=== PATIENT | female | born 1955 | race Caucasian/White ===

== ENCOUNTER 2022-04-05 15:54 | Observation (INO) ==
[2022-04-05] MEDS ORDERED: Iopamidol - 370 500 ML MLS IVP ONE (16:32)
[2022-04-05 16:38] LABS: Basophils % 0.4 %; Eosinophils # 0.1 K/mcL (0.0-0.6); Eosinophils % 1.3 %; Hematocrit 36.3 % (35.3-44.9); Hemoglobin 12.2 g/dL (11.5-15.4); Immature Granulocytes % 0.2 % (0-4); Lymphocytes # 1.1 K/mcL (0.6-4.6); Mean Corpuscular HGB Conc 33.6 g/dL (31.6-35.5); Mean Corpuscular Volume 86.2 fL (83.0-100.0); Mean Platelet Volume 9.2 fL (9.4-12.4); Monocytes # 0.8 K/mcL (0.0-1.3); Monocytes % 8.3 %; Platelet Count 372 K/mcL (140-400); Red Blood Count 4.21 M/mcL (3.82-4.97); Red Cell Distribution Width 13.1 % (11.5-14.5); Segmented Neutrophils % 77.8 %
[2022-04-05 17:22] LABS: Alanine Aminotransferase 5 Units/L (7-52); Albumin 4.2 g/dL (3.5-5.7); Albumin/Globulin Ratio 1.5 (1.1-2.2); Alkaline Phosphatase 67 Units/L (34-104); Aspartate Amino Transferase 17 Units/L (13-39); BUN/Creatinine Ratio 20 (6-26); Bilirubin,Direct 0.1 mg/dL (0.0-0.2); Bilirubin,Indirect 0.5 mg/dL (0.0-1.0); Bilirubin,Total 0.6 mg/dL (0.3-1.0); Blood Urea Nitrogen 12 mg/dL (8-23); Calcium 9.7 mg/dL (8.6-10.3); Carbon Dioxide 25 mEq/L (23-29); Chloride 94 mEq/L (98-107); Globulin 2.8 g/dL (2.4-3.5); Glucose 151 mg/dL (70-105); Lipase 8 Units/L (11-82); Magnesium 1.6 mg/dL (1.6-2.6); Osmolality,Calculated 269 (280-300); Potassium 4.4 mEq/L (3.5-5.1); Sodium 128 mEq/L (136-145); Troponin I < 0.03 ng/mL (< 0.04)
[2022-04-05 18:07] LABS: Thyroid Stimulating Hormone 2.693 mcIU/mL (0.340-5.600)
[2022-04-05 18:10] LABS: Adenovirus Not Detected (Not Detect); Bordetella Pertussis Not Detected (Not Detect); Chlamydophila pneumoniae Not Detected (Not Detect); Coronavirus 229E Not Detected (Not Detect); Coronavirus HKU1 Not Detected (Not Detect); Coronavirus NL63 Not Detected (Not Detect); Coronavirus OC43 Not Detected (Not Detect); Human Metapneumovirus Not Detected (Not Detect); Human Rhinovirus/Enterovirus Not Detected (Not Detect); Influenza A Subtype 2009 H1 Not Detected (Not Detect); Influenza B Not Detected (Not Detect); Mycoplasma pneumoniae Not Detected (Not Detect); Parainfluenza Virus 1 Not Detected (Not Detect); Parainfluenza Virus 2 Not Detected (Not Detect); Parainfluenza Virus 3 Not Detected (Not Detect); Parainfluenza Virus 4 Not Detected (Not Detect); Respiratory Syncytial Virus Not Detected (Not Detect); SARS-CoV-2 Not Detected (Not Detect)
[2022-04-05 19:05] LABS: Bilirubin,Urine Negative (Negative); Blood,Urine Negative (Negative); Clarity,Urine Clear (Clear); Color,Urine Light-Yellow (Yellow); Glucose,Urine (UA) Normal (Normal); Hyaline Casts,Urine Moderate per lpf (None Seen); Ketones,Urine Trace mg/dL (Negative); Leukocyte Esterase,Urine Large (Negative); Mucus,Urine Few per lpf (None-Few); Nitrite,Urine Negative (Negative); Protein,Urine Trace mg/dL (Neg-Trace); RBC,Urine 0-3 per hpf (0-3); Specific Gravity,Urine 1.027 (1.010-1.025); Squamous Epithelial Cell,Urine Few per hpf (None-Few)
[2022-04-05] MEDS ORDERED: Acetaminophen 325 MG TABLET PO ONE (19:06)
[2022-04-05] MEDS ORDERED: cefTRIAXone 1,000 MG in 0.9 % Sodium Chloride 10 ML IVP ONE (19:29)
[2022-04-05] MEDS ORDERED: Naloxone 0.4 MG/ML INJ IVP PRN (20:08)
[2022-04-05] MEDS ORDERED: Ondansetron ODT 4 MG TAB.RAPDIS SL PRN (20:18)
[2022-04-05] MEDS ORDERED: Melatonin 3 MG TABLET PO PRN (20:18)
[2022-04-05] MEDS ORDERED: 0.9 % Sodium Chloride 1,000 ML IVC SCH (20:30)
[2022-04-05] MEDS ORDERED: Morphine Sulfate 2 MG/ML SYRINGE IVP ONE (21:51)
[2022-04-06 06:36] LABS: Hematocrit 35.1 % (35.3-44.9); Hemoglobin 11.9 g/dL (11.5-15.4); Mean Corpuscular HGB Conc 33.9 g/dL (31.6-35.5); Mean Corpuscular Hemoglobin 28.7 pg (28.0-33.3); Mean Corpuscular Volume 84.6 fL (83.0-100.0); Mean Platelet Volume 9.2 fL (9.4-12.4); Platelet Count 348 K/mcL (140-400); Red Blood Count 4.15 M/mcL (3.82-4.97); Red Cell Distribution Width 13.1 % (11.5-14.5); White Blood Count 6.5 K/mcL (4.3-11.1)
[2022-04-06 06:53] LABS: Alanine Aminotransferase 5 Units/L (7-52); Albumin 3.8 g/dL (3.5-5.7); Albumin/Globulin Ratio 1.4 (1.1-2.2); Alkaline Phosphatase 62 Units/L (34-104); Aspartate Amino Transferase 11 Units/L (13-39); BUN/Creatinine Ratio 16 (6-26); Bilirubin,Total 0.5 mg/dL (0.3-1.0); Blood Urea Nitrogen 9 mg/dL (8-23); Calcium 9.8 mg/dL (8.6-10.3); Carbon Dioxide 29 mEq/L (23-29); Chloride 94 mEq/L (98-107); Globulin 2.7 g/dL (2.4-3.5); Glucose 98 mg/dL (70-105); Magnesium 1.6 mg/dL (1.6-2.6); Osmolality,Calculated 267 (280-300); Phosphorous 3.3 mg/dL (2.7-4.5); Potassium 4.3 mEq/L (3.5-5.1); Sodium 129 mEq/L (136-145); Total Protein 6.5 g/dL (6.4-8.9)
[2022-04-06] MEDS: lisinopriL 20 MG TABLET PO SCH (08:45)
[2022-04-06] MEDS: Acetaminophen 325 MG TABLET PO PRN ×2 (15:33→21:55)
[2022-04-06] MEDS ORDERED: 0.9 % Sodium Chloride 1,000 ML IVC SCH (17:45)
[2022-04-06] MEDS: cefTRIAXone 1,000 MG in 0.9 % Sodium Chloride 10 ML IVP SCH (17:54)
[2022-04-07] MEDS: Acetaminophen 325 MG TABLET PO PRN ×3 (05:36→22:02)
[2022-04-07] MEDS: lisinopriL 20 MG TABLET PO SCH (08:47)
[2022-04-07 09:12] LABS: Hematocrit 34.9 % (35.3-44.9); Hemoglobin 11.7 g/dL (11.5-15.4); Mean Corpuscular HGB Conc 33.5 g/dL (31.6-35.5); Mean Corpuscular Hemoglobin 29.2 pg (28.0-33.3); Platelet Count 347 K/mcL (140-400); Red Blood Count 4.01 M/mcL (3.82-4.97); Red Cell Distribution Width 13.2 % (11.5-14.5); White Blood Count 6.3 K/mcL (4.3-11.1)
[2022-04-07 09:29] LABS: BUN/Creatinine Ratio 19 (6-26); Blood Urea Nitrogen 9 mg/dL (8-23); Calcium 9.7 mg/dL (8.6-10.3); Carbon Dioxide 29 mEq/L (23-29); Chloride 97 mEq/L (98-107); Glucose 100 mg/dL (70-105); Magnesium 1.6 mg/dL (1.6-2.6); Osmolality,Calculated 271 (280-300); Potassium 4.1 mEq/L (3.5-5.1); Sodium 131 mEq/L (136-145)
[2022-04-07] MEDS: cefTRIAXone 1,000 MG in 0.9 % Sodium Chloride 10 ML IVP SCH (17:55)
[2022-04-08] MEDS: Acetaminophen 325 MG TABLET PO PRN ×2 (03:50→10:55)
[2022-04-08 07:17] LABS: BUN/Creatinine Ratio 21 (6-26); Blood Urea Nitrogen 11 mg/dL (8-23); Carbon Dioxide 29 mEq/L (23-29); Chloride 96 mEq/L (98-107); Glucose 102 mg/dL (70-105); Magnesium 1.7 mg/dL (1.6-2.6); Osmolality,Calculated 270 (280-300); Potassium 5.2 mEq/L (3.5-5.1); Sodium 130 mEq/L (136-145)
[2022-04-08 07:46] VITALS: O2SAT 95
[2022-04-08] MEDS: lisinopriL 20 MG TABLET PO SCH (10:55)
[2022-04-08] MEDS: SODIUM ZIRCONIUM CYCLOSILICATE 5 GM POWD.PACK PO SCH ×2 (10:55→12:47)
[2022-04-08 11:52] VITALS: PULSE 80
[2022-04-08] MEDS ORDERED: 0.9 % Sodium Chloride 1,000 ML IVC SCH (14:00)
[2022-04-08 16:01] VITALS: BP 147/84; TEMP 98.6
[2022-04-10] MEDS ORDERED: Ergocalciferol (VIT D2) 50,000 UNIT (1.25MG) CAP PO SCH (21:00)
== END 2022-04-08 16:30 | disposition home or self-care (01) ==
LOC: 3NENU 15:54 → EMEROOARM 15:54 → SUATTDRO 20:21 → 3NENU 20:56
PROVIDERS: ADMIT Internal Medicine; ATTEND Internal Medicine